=== PATIENT | female | born 1960 | race Caucasian/White ===

== ENCOUNTER 2017-07-23 14:36 | Inpatient (IN) | payer MEDICAID ==
[~2017-07-23] VITALS: Ht 170.2 cm; Wt 66.3 kg
[2017-07-23 14:48] VITALS: Ht 170.2 cm; Wt 66.3 kg
[2017-07-23] MEDS ORDERED: ASPIRIN 325 MG TAB PO STA (15:15)
[2017-07-23] MEDS ORDERED: ASPI-664 PO (15:24)
[2017-07-23] MEDS ORDERED: ATOR40TA68 PO (15:24)
[2017-07-23] MEDS ORDERED: CARV3.1260 PO (15:24)
[2017-07-23 15:30] VITALS: TEMP 97.9
--- NOTE | 2017-07-23 15:30 | ERA ---
ER Documentation Chief Complaint Date/Time DATE: 07/23/17 TIME: 15:17 Chief Complaint BIB RA FOR EVAL OF GENERALIZED WEAKNESS. PT ON HD. SCHEDULED TODAY. HPI This is a 55-year-old female with a past medical history of diabetes, end-stage renal disease on dialysis Friday, Friday and Friday who is presenting with weakness, recurrent progressive left-sided chest pain radiating to the back for several days. The patient was reportedly admitted at [facility] and treated for heart failure. She is discharged yesterday with a prescription for nitroglycerin. However, she has not yet been able to fill this prescription. She is with her psychiatric social worker supervisor this afternoon when she described persistent chest pain. The psychiatric social worker supervisor was concerned at that time, and called an ambulance. The patient tried to refuse the ambulance, and she presently does not want to be here. The patient denies diaphoresis. She has had no lightheadedness or dizziness. She does not feel like she is going to pass out. She denies nausea or vomiting or abdominal pain. The patient's fatigue has been going on for weeks, but it been worse over the last week or so, which is what initially prompted her to be evaluated at [facility]. The patient's chest pain has also been going on for the same amount of time and has been evaluated for this previously. She reports that the CP has persisted through discharge, but that it seems to be decreasing today. ROS All systems reviewed and are negative except as per history of present illness. Medications Home Meds Reported Medications Carvedilol* (Carvedilol*) 3.125 Mg Tablet, 3.125 MG PO BID, #60 TAB 07/23/17 Atorvastatin* (Atorvastatin*) 40 Mg Tablet, 40 MG PO QHS, #30 TAB 07/23/17 Aspirin (Low Dose Aspirin) 81 Mg Tablet.dr, 81 MG PO DAILY, #30 TAB 07/23/17 Allergies Allergies: Coded Allergies: No Known Allergy (Unverified , 07/23/17) PMhx/Soc History of Surgery: Yes (AV SHUNT PLACEMENT ) Anesthesia Reaction: No Hx Miscellaneous Medical Probl: Yes (KIDNEY DISEASE ) Hx Alcohol Use: No Hx Substance Use: No Hx Tobacco Use: No Smoking Status: Never smoker FmHx Family History: diabetes Physical Exam Vitals Vital Signs Date Time Temp Pulse Resp B/P Pulse Ox O2 Delivery O2 Flow Rate FiO2 07/23/17 18:30 59 20 120/71 100 Room Air 07/23/17 15:30 97.9 50 16 117/66 100 Room Air 07/23/17 14:48 97.9 89 16 115/59 100 Physical Exam Const: Well nourished, well developed Head: Atraumatic Eyes: Normal Conjunctiva ENT: Normal External Ears, Nose and Mouth. Neck: Full range of motion..~ No meningismus. Resp: Clear to auscultation bilaterally Cardio: Regular rate and rhythm, no murmurs Abd: Soft, non tender, non distended. Normal bowel sounds Skin: No petechiae or rashes Back: No midline or flank tenderness Ext: No cyanosis, or edema, palpable thrill to RUE AV fistula Neur: Awake and alert Psych: Normal Mood and Affect Result Diagram: 07/23/17 1550 07/23/17 1550 Results 24 hrs Laboratory Tests Test 07/23/17 15:50 White Blood Count 5.510^3/ul Red Blood Count 3.6910^6/ul Hemoglobin 12.2g/dl Hematocrit 36.1% Mean Corpuscular Volume 97.8fl Mean Corpuscular Hemoglobin 33.1pg Mean Corpuscular Hemoglobin Concent 33.8g/dl Red Cell Distribution Width 12.3% Platelet Count 24524^3/UL Mean Platelet Volume 10.5fl Neutrophils % 56.1% Lymphocytes % 31.8% Monocytes % 8.6% Eosinophils % 2.4% Basophils % 0.9% Nucleated Red Blood Cells % 0.0/100WBC Neutrophils # (Manual) 3.110^3/ul Lymphocytes # 1.710^3/ul Monocytes # 0.510^3/ul Eosinophils # 0.110^3/ul Basophils # 0.110^3/ul Nucleated Red Blood Cells # 0.010^3/ul Sodium Level 148mmol/L Potassium Level 5.2mmol/L Chloride Level 98mmol/L Carbon Dioxide Level 27mmol/L Anion Gap 28 Blood Urea Nitrogen 57mg/dl Creatinine 9.15mg/dl Glucose Level 76mg/dl Calcium Level 9.4mg/dl Troponin I 0.036ng/ml Current Medications Medications (Trade) Dose Ordered Sig/Brissa Route PRN Reason Start Time Stop Time Status Last Admin Dose Admin Aspirin (Aspirin) 325 mg ONCE STAT PO 07/23/17 15:15 07/23/17 15:17 DC 07/23/17 16:15 Ondansetron HCl (Zofran Inj) 4 mg ER BRIDGE PRN IV NAUSEA AND/OR VOMITING 07/23/17 18:00 07/24/17 17:59 Acetaminophen 650 mg 650 mg ER BRIDGE PRN PO MILD PAIN/FEVER 07/23/17 18:00 07/24/17 17:59 Sodium Chloride (NS) 1,000 ml @ 50 mls/hr Q20H IV 07/23/17 19:52 IV Flush (NS 3 ml) 3 ml PER PROTOCOL IV 07/23/17 20:00 Ondansetron HCl (Zofran Inj) 4 mg Q6H PRN IV NAUSEA AND/OR VOMITING 07/23/17 20:00 Acetaminophen (Tylenol Tab) 650 mg Q6H PRN PO PAIN LEVEL 1-3 OR FEVER 07/23/17 20:00 Acetaminophen/ Hydrocodone Bitart ([place] (5/325)) 1 tab Q6H PRN PO MODERATE PAIN LEVEL 4-6 07/23/17 20:00 Morphine Sulfate (morphine) 2 mg Q4H PRN IV SEVERE PAIN LEVEL 7-10 07/23/17 20:00 Docusate Sodium (Colace) 100 mg Q12H PRN PO CONSTIPATION 07/23/17 20:00 Famotidine (Pepcid Iv) 20 mg HS IV 07/23/17 21:00 Procedures/MDM The patient's presenting with persistent weakness and chest pain. She is been evaluated for this chest pain multiple times including a recent admission to [facility] for which she was discharged yesterday. The only reason why she went to her case sealer was to work on getting a prescription for nitroglycerin filled. Her case sealer was concerned and called the paramedics. The patient does not want to be here but is willing to stay for a workup as she does still have chest pain. I intend to perform a cardiac workup. The patient's blood work was obtained and reviewed. The patient's CBC was unremarkable. The patient's BMP shows showed a mild elevation in K and Na. Of greater note was the elevated BUN and Cr, likely from her missed dialysis today. The troponin is elevated at 0.036, which is difficult to evaluate as this is very likely elevated 2/2 her renal pathology but she presents with CP. The patient's chest x-ray was read by radiology as follows: FINDINGS: The heart is normal in size. The pulmonary vessels are normal in caliber. The lungs are clear. The costophrenic angles are sharp. The visualized bony thorax is unremarkable. IMPRESSION: No acute cardiopulmonary disease. .Logan Smith MD, Date Time Electronically viewed and signed by .Logan Smith MD, on 07/23/2017 15:55 EKG read by me: Rate/Rhythm: Regular rate and rhythm at a rate of 81 Intervals: Normal QRS and [place], mildly prolonged QTc [place]: Normal Ischemic Profile: Nonspecific Twave changes, no ROLANDO, no STD Impression: No evidence of acute ischemia or arrhythmia I put the patient's heart score at 5 for age, risk factors, moderate suspicion, nonspecific repolarization abnormalities and elevated trop. This is been an ongoing issue and she has had a full workup previously at [facility]. That said, given her moderate risk, I will admit this patient for observational status and serial EKGs and troponins. The risks and benefits were discussed with the patient including her increased risk of heart attack in the next 30 days. The patient expressed understanding and she accepted admission. Records from [facility] may be prudent to evaluate duration since previous stress test. Patient was not sure. She may require consult with nephrology in the hospital for dialysis. The patient was admitted by Dr. Osuna from the [facility], directed by the patient's insurance. Departure Diagnosis: Primary Impression: Chest pain Qualified Code: R07.9 - Chest pain, unspecified type Additional Impression: Fatigue Qualified Code: R53.83 - Fatigue, unspecified type Condition: GUY Ramírez MD Jul 23, 2017 15:29
--- NOTE | 2017-07-23 15:55 | RADRPT ---
PROCEDURE: Chest x-ray CLINICAL INDICATION: Chest pain TECHNIQUE: Chest single view COMPARISON: None FINDINGS: The heart is normal in size. The pulmonary vessels are normal in caliber. The lungs are clear. Th e costophrenic angles are sharp. The visualized bony thorax is unremarkable. IMPRESSION: No acute cardiopulmonary disease. RPTAT: HH .Logan Smith MD, Date Time Electronically viewed and signed by .Logan Smith MD, MD on 07/23/2017 15:55 .W/
[2017-07-23 16:11] LABS: BASOPHIL # 0.1 10^3/ul (0.0-0.1); BASOPHILS % 0.9 % (0.0-2.0); EOSINOPHILS # 0.1 10^3/ul (0.0-0.5); EOSINOPHILS % 2.4 % (0.0-7.0); HEMATOCRIT 36.1 % (37.0-47.0); HEMOGLOBIN 12.2 g/dl (12.0-16.0); LYMPHOCYTES # 1.7 10^3/ul (0.8-2.9); LYMPHOCYTES % 31.8 % (15.0-51.0); MEAN CORPUSCULAR HEMOGLOBIN 33.1 pg (29.0-33.0); MEAN CORPUSCULAR HGB CONC 33.8 g/dl (32.0-37.0); MEAN CORPUSCULAR VOLUME 97.8 fl (82.0-101.0); MEAN PLATELET VOLUME 10.5 fl (7.4-10.4); MONOCYTE # 0.5 10^3/ul (0.3-0.9); MONOCYTES % 8.6 % (0.0-11.0); NEUTROPHILS % 56.1 % (39.0-77.0); PLATELET COUNT 221 10^3/UL (140-415); RED BLOOD COUNT 3.69 10^6/ul (4.20-5.40); RED CELL DISTRIBUTION WIDTH 12.3 % (11.5-14.5); WHITE BLOOD COUNT 5.5 10^3/ul (4.8-10.8)
[2017-07-23 16:26] LABS: CALCIUM 9.4 mg/dl (8.4-10.2); CREATININE 9.15 mg/dl (0.44-1.00); POTASSIUM 5.2 mmol/L (3.5-5.1)
[2017-07-23 16:37] LABS: TROPONIN-I 0.036 ng/ml (0.00-0.12)
[2017-07-23] MEDS ORDERED: ACETAMINOPHEN 325 MG TAB PO PRN ×2 (18:00→20:00)
[2017-07-23] MEDS ORDERED: ONDANSETRON 4 MG INJ IV PRN ×2 (18:00→20:00)
[2017-07-23] MEDS ORDERED: morphine 2 MG INJ IV PRN (20:00)
[2017-07-23] MEDS ORDERED: NACL 0.9% 3 ML SYG IV SCH (20:00)
[2017-07-23] MEDS ORDERED: DOCUSATE SODIUM 100 MG CAP PO PRN (20:00)
[2017-07-23] MEDS: ASPIRIN (EC) 81 MG TAB PO SCH (21:00)
[2017-07-23] MEDS ORDERED: hydrALAzine 20 MG INJ IV PRN (21:00)
[2017-07-23 21:25] VITALS: PULSE 76
[2017-07-23 22:00] VITALS: BP 137/64; RESP 20
[2017-07-23] MEDS: ATORVASTATIN 40 MG TAB PO SCH (22:24)
[2017-07-23] MEDS: FAMOTIDINE 20 MG INJ IV SCH (22:26)
[2017-07-23 23:42] VITALS: BP 129/67; RESP 20
[2017-07-24] VITALS (12 sets, daily range): BP systolic 122–139; BP diastolic 56–74; PULSE 68–79; RESP 18–20
--- NOTE | 2017-07-24 01:54 | HP ---
DATE OF ADMISSION: 07/23/2017 DATE OF : 1960 PRIMARY CARE PHYSICIAN: Unknown. ROCK DUSTER: Leon Bee DO CHIEF COMPLAINT: Chest pain. HISTORY OF PRESENT ILLNESS: This is a 56-year-old female who presents with 4 days of chest pain and shortness of breath. No known aggravating and no known alleviating factors. Insidious onset of substernal left chest, possibly to the back, 4 days, fairly constant, without any known aggravating or relieving factors. Denies any elle productive cough, fever, travel, leg pain, leg edema. Adherent to dialysis. Treatment prior to arrival unknown. Does not sound like any pleurisy. Possible increase with activity. No nausea, no vomiting, no diaphoresis. No alcohol use. Apparently in [facility] yesterday, given prescription for nitroglycerin, but did not fill the prescription. Positive fatigue. PAST MEDICAL HISTORY: 1. End-stage renal disease, sees Dr. Nish Bradley. 2. Dyslipidemia. 3. Hypertension. 4. Pneumonia. PAST SURGICAL HISTORY: AV shunt. ALLERGIES: NO KNOWN DRUG ALLERGIES. HOME MEDICATIONS: Coreg, Lipitor, aspirin. SOCIAL HISTORY: No tobacco or alcohol. FAMILY HISTORY: There is no family history of early coronary artery disease, cancer or stroke of which I am aware. REVIEW OF SYSTEMS: CONSTITUTIONAL: Possible anxiety. The patient saw her social media analyst today. No agitation. NEUROLOGIC: No headache. No loss of speech or vision. Positive headache, dizziness. CARDIOVASCULAR: Chest pain and dyspnea. No edema. RESPIRATORY: Positive cough, dyspnea. No edema. GASTROINTESTINAL: No pain, nausea, vomiting or diarrhea. GENITOURINARY: No hematuria, or fever. MUSCULOSKELETAL: No gait dysfunction, no itching, no edema. ENDOCRINE: Positive dyslipidemia. No thyroid dysfunction. No diabetes. HEMATOLOGIC: No hemoptysis, melena or hematuria. PHYSICAL EXAMINATION: HEENT: Extraocular movements are intact. No pallor. NECK: No adenopathy. No carotid bruit. No JVD noted. CARDIOVASCULAR: S1 and S2 regular. No murmur, rub or gallop appreciated. LUNGS: Diminished breath sounds bilaterally. ABDOMEN: Bowel sounds present. Nontender and nondistended. No rigidity, rebound or guarding. EXTREMITIES: Without any edema. Negative Homans sign. DATA: Chest X-Ray: No acute process. White cell count 5, hemoglobin 12, hematocrit 36, platelets of 221. INR pending. Sodium 148, potassium 5.2, chloride 98,bicarbonate 26, BUN of 57, creatinine 9, glucose of 70. Troponin negative at 0.0. ASSESSMENT: 1. Chest pain. Atypical. Rule out acute coronary syndrome. Possible anxiety. 2. End-stage renal disease. 3. Dyslipidemia. 4. Hypertension. PLAN: Admit to Telemetry. Consult Nephrology. Rule out acute coronary syndrome via enzymes, EKG, symptoms. Potentially, if needed, stress test. Dictated By: Faheem Fink MD /[email or web address]/sandra /Document#: [id number] CC: Leon Bee DO;*EndCC*
[2017-07-24] MEDS: SOD CHLORIDE 0.9% 1,000 ML IV SCH ×2 (05:23→15:52)
[2017-07-24] MEDS: ASPIRIN (EC) 81 MG TAB PO SCH (10:16)
[2017-07-24 13:37] LABS: BASOPHIL # 0.1 10^3/ul (0.0-0.1); BASOPHILS % 1.5 % (0.0-2.0); EOSINOPHILS # 0.2 10^3/ul (0.0-0.5); EOSINOPHILS % 4.3 % (0.0-7.0); HEMATOCRIT 32.7 % (37.0-47.0); HEMOGLOBIN 10.8 g/dl (12.0-16.0); LYMPHOCYTES # 1.4 10^3/ul (0.8-2.9); LYMPHOCYTES % 36.1 % (15.0-51.0); MEAN CORPUSCULAR HEMOGLOBIN 32.2 pg (29.0-33.0); MEAN CORPUSCULAR VOLUME 97.6 fl (82.0-101.0); MEAN PLATELET VOLUME 10.4 fl (7.4-10.4); MONOCYTE # 0.3 10^3/ul (0.3-0.9); MONOCYTES % 7.8 % (0.0-11.0); PLATELET COUNT 188 10^3/UL (140-415); RED BLOOD COUNT 3.35 10^6/ul (4.20-5.40); RED CELL DISTRIBUTION WIDTH 12.3 % (11.5-14.5)
[2017-07-24 13:53] LABS: ALBUMIN/GLOBULIN RATIO 1.11; CALCIUM 9.2 mg/dl (8.4-10.2); CREATININE 10.05 mg/dl (0.44-1.00); MAGNESIUM 2.2 mg/dl (1.7-2.5); PHOSPHORUS 6.7 mg/dl (2.5-4.9); POTASSIUM 5.3 mmol/L (3.5-5.1); TOTAL PROTEIN 7.6 g/dl (6.1-8.1)
[2017-07-24 13:56] LABS: INR 1.03; PROTIME 13.5 Sec (12.2-14.2); PT RATIO 1.1
[2017-07-24 14:23] LABS: THYROID STIMULATING HORMONE 0.719 MIU/L (0.465-4.680)
[2017-07-24 14:58] LABS: TROPONIN-I 0.046 ng/ml (0.00-0.12)
--- NOTE | 2017-07-24 17:33 | PN ---
Date/Time of Note Date/Time of Note DATE: 07/24/17 TIME: 17:32 Assessment/Plan VTE Prophylaxis VTE Prophylaxis Intervention: LMWH Lines/Catheters IV [facility] Type [facility] Peripheral IV Urinary Cath still in place: No Assessment/Plan Chief Complaint/Hosp Course Objective: No events Objective: Vital signs stable No pallor JVD Regular Clear nontender Benign no bruits No edema Assessment and plan 1. Chest pain. Atypical. Rule out acute coronary syndrome. Possible anxiety. stress test 2. End-stage renal disease. Dialysis. 3. Dyslipidemia. 4. Hypertension. Problems: Exam/Review of Systems Vital Signs Vitals Vital Signs Date Time Temp Pulse Resp B/P Pulse Ox O2 Delivery O2 Flow Rate FiO2 07/24/17 16:19 98.4 70 19 125/64 95 07/23/17 20:25 Room Air Results Result Diagram: 07/24/17 1310 07/24/17 1310 Results 24 hrs Laboratory Tests Test 07/24/17 13:10 White Blood Count 4.0 #L Red Blood Count 3.35 L Hemoglobin 10.8 L Hematocrit 32.7 L Mean Corpuscular Volume 97.6 Mean Corpuscular Hemoglobin 32.2 Mean Corpuscular Hemoglobin Concent 33.0 Red Cell Distribution Width 12.3 Platelet Count 188 Mean Platelet Volume 10.4 Neutrophils % 50.0 Lymphocytes % 36.1 Monocytes % 7.8 Eosinophils % 4.3 Basophils % 1.5 Nucleated Red Blood Cells % 0.0 Neutrophils # (Manual) 2.0 Lymphocytes # 1.4 Monocytes # 0.3 Eosinophils # 0.2 Basophils # 0.1 Nucleated Red Blood Cells # 0.0 Prothrombin Time 13.5 Prothrombin Time Ratio 1.1 INR International Normalized Ratio 1.03 Sodium Level 143 Potassium Level 5.3 H Chloride Level 100 Carbon Dioxide Level 23 Anion Gap 25 H Blood Urea Nitrogen 61 H Creatinine 10.05 H Glucose Level 73 Hemoglobin A1c 4.9 Calcium Level 9.2 Phosphorus Level 6.7 H Magnesium Level 2.2 Total Bilirubin 0.0 L Direct Bilirubin 0.00 Indirect Bilirubin 0.0 Aspartate Amino Transf (AST/SGOT) 22 Alanine Aminotransferase (ALT/SGPT) 26 Alkaline Phosphatase 76 Troponin I 0.046 Total Protein 7.6 Albumin 4.0 Globulin 3.60 H Albumin/Globulin Ratio 1.11 Lipase 250 Thyroid Stimulating Hormone (TSH) 0.719 Medications Medications Current Medications Sodium Chloride (NS) 1,000 ml @ 50 mls/hr Q20H IV Last administered on 05:23; Admin Dose 50 MLS/HR; Start 07/23/17 at 19:52 Ondansetron HCl (Zofran Inj) 4 mg Q6H PRN IV NAUSEA AND/OR VOMITING; Start at 20:00 Acetaminophen (Tylenol Tab) 650 mg Q6H PRN PO PAIN LEVEL 1-3 OR FEVER; Start at 20:00 Acetaminophen/ Hydrocodone Bitart ([place] (5/325)) 1 tab Q6H PRN PO MODERATE PAIN LEVEL 4-6; Start 07/23/17 at 20:00 Morphine Sulfate (morphine) 2 mg Q4H PRN IV SEVERE PAIN LEVEL 7-10; Start 07/23 at 20:00 Docusate Sodium (Colace) 100 mg Q12H PRN PO CONSTIPATION; Start 07/23/17 at 20: 00 Famotidine (Pepcid Iv) 20 mg HS IV Last administered on 07/23/17 22:26; Admin Dose 20 MG; Start 07/23/17 at 21:00 Aspirin (Halfprin) 81 mg DAILY PO Last administered on 07/24/17 10:16; Admin Dose 81 MG; Start 07/23/17 at 21:00 Atorvastatin Calcium (Lipitor) 40 mg QHS PO Last administered on 07/23/17 22: 24; Admin Dose 40 MG; Start 07/23/17 at 21:00 Carvedilol (Coreg) 3.125 mg BID PO Last administered on 07/24/17 10:20; Admin Dose 3.125 MG; Start 07/23/17 at 21:00 Hydralazine HCl (Apresoline) 5 mg Q4 PRN IV ELEVATED SYSTOLIC BP; Start at 21:00 GARLAND PUGH MD Jul 24, 2017 17:33
[2017-07-24] MEDS: ATORVASTATIN 40 MG TAB PO SCH (21:59)
[2017-07-24] MEDS: FAMOTIDINE 20 MG INJ IV SCH (22:08)
[2017-07-24] MEDS ORDERED: ALPRAZOLAM 1 MG TAB PO PRN (22:30)
[2017-07-24] MEDS: HYDROCODONE/APAP (5/325) TAB PO PRN (22:38)
--- NOTE | 2017-07-24 23:30 | CONS ---
DATE OF ADMISSION: 07/23/2017 DATE OF CONSULTATION: 07/24/2017 REASON FOR CONSULTATION: End-stage renal disease. REFERRING PHYSICIAN: Faheem Fink MD HISTORY OF PRESENT ILLNESS: This is a 56-year-old female with a past medical history of end-stage renal disease, on dialysis Friday, Friday, Friday. Primary flatbed stitcher is . The patient also has history of dyslipidemia, hypertension, pneumonia, presents to [facility] for chest pain. Patient was subsequently admitted for evaluation. Upon my evaluation, patient at this time is currently stable. Denies any fevers, chills, nausea, vomiting. PAST MEDICAL HISTORY: History of end-stage renal disease, history of dyslipidemia, hypertension. PAST SURGICAL HISTORY: Past section. ALLERGIES: NO KNOWN DRUG ALLERGIES. MEDICATION: Patient's home medications reviewed. SOCIAL HISTORY: Does not drink or smoke. FAMILY HISTORY: Noncontributory. REVIEW OF SYSTEMS: A 14-point review of systems was conducted. Pertinent positives stated in HPI, otherwise negative. PHYSICAL EXAMINATION: VITAL SIGNS: Blood pressure 130/76, respirations 22, pulse 82, temperature 98.6. HEENT: Head is normocephalic. NECK: Supple. HEART: Regular rate. LUNGS: Show diminished breath sounds at the base. ABDOMEN: Soft, nontender to palpation. No rebound or guarding. EXTREMITIES: Negative for clubbing, cyanosis, no edema. DERMATOLOGIC: Clean. No rashes. MUSCULOSKELETAL: No joint effusion. NEUROLOGIC: No focal deficits. LABORATORY: Show sodium 143, potassium 5.3, chloride 100, BUN 61, creatinine 7.05. White count 4.0, hemoglobin 10.9, hematocrit 32.7, platelet count is 180. A chest x-ray showed no acute findings. IMPRESSION AND PLAN: This is a 56-year-old female, presents with: 1. End-stage renal disease. Plan: The patient is on dialysis Friday, Friday, Friday. 2. Access arteriovenous fistula. Plan for dialysis tomorrow on 3 hours, 3K bath, calcium 2.5, ultrafiltration as tolerated. 3. Hypokalemia. Will dialyze on 2 potassium bath. 4. Anemia. Monitor H and H levels. Will give Epogen with hemodialysis. 5. Mineral bone disorder. Will monitor calcium and phosphorus levels. 6. Hypertension. Continue current blood pressure regimen. 7. Chest pain. Rule out acute coronary syndrome. Continue medical management. Thank you, Dr. Fink for this interesting consult. It will be a pleasure to follow patient with you throughout the hospital course. Dictated By: Leon Bee DO /[email or web address]/elia /Document#: [id number]
[2017-07-25] VITALS (18 sets, daily range): BP systolic 113–141; BP diastolic 57–78; PULSE 62–84; RESP 18–20
[2017-07-25 08:28] LABS: BASOPHIL # 0.1 10^3/ul (0.0-0.1); BASOPHILS % 1.1 % (0.0-2.0); EOSINOPHILS # 0.2 10^3/ul (0.0-0.5); HEMATOCRIT 33.2 % (37.0-47.0); LYMPHOCYTES # 1.6 10^3/ul (0.8-2.9); MEAN CORPUSCULAR HEMOGLOBIN 32.1 pg (29.0-33.0); MEAN CORPUSCULAR HGB CONC 33.1 g/dl (32.0-37.0); MEAN CORPUSCULAR VOLUME 96.8 fl (82.0-101.0); MEAN PLATELET VOLUME 10.5 fl (7.4-10.4); MONOCYTE # 0.3 10^3/ul (0.3-0.9); MONOCYTES % 7.4 % (0.0-11.0); NEUTROPHILS % 50.3 % (39.0-77.0); PLATELET COUNT 190 10^3/UL (140-415); RED BLOOD COUNT 3.43 10^6/ul (4.20-5.40); RED CELL DISTRIBUTION WIDTH 12.2 % (11.5-14.5); WHITE BLOOD COUNT 4.4 10^3/ul (4.8-10.8)
[2017-07-25 08:42] LABS: INR 1.09; PROTIME 14.1 Sec (12.2-14.2); PT RATIO 1.1
[2017-07-25 08:55] LABS: ALBUMIN 3.9 g/dl (3.3-4.9); ALBUMIN/GLOBULIN RATIO 1.18; CREATININE 10.89 mg/dl (0.44-1.00); MAGNESIUM 2.2 mg/dl (1.7-2.5); PHOSPHORUS 7.5 mg/dl (2.5-4.9); POTASSIUM 5.1 mmol/L (3.5-5.1); TOTAL PROTEIN 7.2 g/dl (6.1-8.1)
[2017-07-25] MEDS: ASPIRIN (EC) 81 MG TAB PO SCH (09:00)
--- NOTE | 2017-07-25 11:30 | PN ---
DATE: 07/25/2017 SUBJECTIVE DATA: Patient is stable. No events overnight. No fevers, chills, nausea, vomiting. No shortness of breath. OBJECTIVE DATA: VITAL SIGNS: Blood pressure 120/66, respirations 20, pulse 64, temperature 98.2. HEENT: Head is normocephalic. NECK: Supple. HEART: Regular rate. LUNGS: Diminished breath sounds at the base. ABDOMEN: Soft, nontender to palpation. No rebound or guarding. EXTREMITIES: Negative for clubbing, cyanosis. No edema. DERMATOLOGIC: No rashes. MUSCULOSKELETAL: No joint effusion. NEUROLOGIC: No change in exam. MEDICATIONS: Reviewed. LABORATORY AND DIAGNOSTIC DATA: Sodium 141, BUN 88, creatinine 10.89. White count 4.4, hemoglobin 9.0, hematocrit 33.2, platelet count is 190,000. ASSESSMENT AND PLAN: 1. End-stage renal disease. Plan for hemodialysis today. Will dialyze 3 hours, 3K bath, calcium 2.5, ultrafiltration as tolerated. 2. Hypokalemia improved. Continue dialysis on a low potassium bath. 3. Anemia. Monitor hemoglobin and hematocrit levels. Will give Epogen with hemodialysis. 4. Mineral bone disorder. Monitor calcium and phosphorus levels. 5. Hypertension. Continue current blood pressure regimen. 6. Chest pain. The patient's symptoms are improving. Continue to rule out acute coronary syndrome. Continue medical management. Dictated By: Leon Bee DO /[email or web address]/rosina /Document#: [id number]
[2017-07-25] MEDS ORDERED: REGADENOSON 0.4 MG/5 ML SYG ONE (11:47)
[2017-07-25] MEDS ORDERED: NITROGLYCERIN (SL) 0.4 MG TAB SL PRN (12:30)
--- NOTE | 2017-07-25 13:43 | CONS ---
DATE OF ADMISSION: 07/23/2017 DATE OF CONSULTATION: 07/25/2017 REASON FOR CONSULTATION: Chest pain, assess for acute coronary syndrome. REFERRING PHYSICIAN: Dr. Fink from the hospitalist service. HISTORY OF PRESENT ILLNESS: Ms. Orlando is a 56-year-old female with history of end-stage renal disease, on hemodialysis, hypertension, anemia, who initially presented with complaints of substernal chest pain, and additionally, has associated shortness of breath. The patient's chest pain is not necessarily related to exertional activities. The patient subsequently admitted to the hospital and since admitted to the hospital has had stable vital signs. Systolic blood pressures from 110s to 130s/ 50s to 70s. The patient's labs are notable for negative troponin x2 greater than 8 hours apart. TSH of 0.719. No lipid panel has been sent. The patient's electrocardiogram revealed sinus rhythm at a rate of 74, normal axis, normal intervals, with inferior biphasic T-wave abnormalities. Patient at this time has had improvement in chest pain. The patient has been placed on beta elvin, aspirin, given Xanax for possible anxiety. PAST MEDICAL HISTORY: As above in HPI. MEDICATION: Currently in the hospital: 1. Xanax p.r.n. 2. Pepcid 20 mg IV at bedtime. 3. Aspirin 81 mg daily. 4. Lipitor 40 mg at bedtime. 5. Carvedilol 3.125 mg p.o. b.i.d. 6. Zofran p.r.n. 7. Tylenol p.r.n. 8. [place] p.r.n. 9. Morphine p.r.n. 10. Colace p.r.n. ALLERGIES: NO KNOWN DRUG ALLERGIES. SOCIAL HISTORY: No tobacco, EtOH or illicit drug use. FAMILY HISTORY: No history of sudden cardiac or early CAD. REVIEW OF SYSTEMS: As above in HPI. CONSTITUTIONAL: No fevers or chills. RESPIRATORY: Intermittent shortness of breath. CARDIOVASCULAR: Intermittent chest pain. GASTROINTESTINAL: No vomiting. GENITOURINARY: End-stage renal disease. PSYCHIATRIC: Possible anxiety. NEUROLOGIC: No documented CVA. PHYSICAL EXAMINATION: VITAL SIGNS: Temperature 98.2, blood pressure 127/66, pulse 64, respiratory rate 20, satting 98 percent. GENERAL: The patient is alert, awake, complaining of intermittent chest pain. NECK: JVP approximately 8-9 cm of water. LUNGS: Fair air movement throughout. HEART: Regular rate and rhythm. Normal S1, S2. 1/6 systolic murmur. Nondisplaced PMI. ABDOMEN: Positive bowel sounds. Soft. EXTREMITIES: No edema. 1+ pulses bilateral posterior tibial. LABORATORY: Most recently from today: Sodium 141, potassium 5.1, creatinine 10.89, BUN of 80. White blood cell count 4.4, hemoglobin 11.0, platelet count of 190. IMAGING STUDIES: As above in HPI. No further imaging studies were reviewed at this time. ELECTROCARDIOGRAM: As above in HPI. No further electrocardiograms were reviewed at this time. IMPRESSION: 1. Chest pain. Assess for acute coronary syndrome, with negative troponins x2 at this time. 2. Abnormal electrocardiogram with inferior biphasic T-wave abnormalities. 3. Hypertension, under reasonable control. 4. Dyslipidemia. 5. Possible anxiety. 6. End-stage renal disease, on hemodialysis. RECOMMENDATIONS: 1. At this time, would maintain patient on telemetry monitoring to follow rhythm and rate closely and to continue patient's current carvedilol for control of blood pressures. 2. Continue patient's aspirin for prophylaxis of cardiac events. 3. Continue patient's statin and adjust it according to a fasting lipid panel to be checked. We will also give patient sublingual nitroglycerin for recurrent episodes of chest pain. 4. Patient to undergo Lexiscan cardiac stress test today in order to assess for the possibility of ischemia in light of his symptoms of chest pain, abnormal electrocardiogram findings and admit to the hospital. 5. Dyspnea. 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 Thank you for allowing me to part in the care of this patient. I will continue to follow him very closely with you. Further recommendation made as patient progresses through his inpatient hospital course and after the above study, Lexiscan stress test, is complete. Dictated By: Deandre Boyle MD /[email or web address]/[email or web address] /Document#: [id number] ; Dr. Fink, hospitalist service
--- NOTE | 2017-07-25 13:54 | CARRPT ---
DATE OF PROCEDURE: 07/25/2017 INDICATION: Chest pain. Assess for acute coronary syndrome. TYPE OF PROCEDURE: Lexiscan Cardiolite stress test, electrocardiogram portion. Baseline vital signs: Pulse 74, blood pressure 134/76. Electrocardiogram: Normal sinus rhythm, rate of 74, normal axis, normal intervals with isolated T-wave flattening in aVL and I and inferior biphasic T-wave abnormalities. PROCEDURE: Patient underwent standard Lexiscan infusion for 10 seconds followed by uptake of radiotracer. Patient's test was stopped due to completion of protocol. Maximal achieved blood pressure during the test 137/65. Maximum heart rate during the test 88. ELECTROCARDIOGRAM FINDINGS: During Lexiscan infusion, patient did not develop any new Lexiscan-induced ST-T wave changes from baseline abnormalities. SYMPTOMS: The patient had no complaints of chest pain, shortness of breath. IMPRESSION: 1. No Lexiscan-induced ST-T wave changes from baseline abnormalities diagnostic for cardiac ischemia. 2. No complaints of chest pain or shortness of breath during stress test. 3. No documented premature ventricular contractions during stress test. 4. Reported nuclear images to follow in a separate dictation. Dictated By: Deandre Boyle MD /[email or web address]/[email or web address] /Document#: [id number] ; Dr. Fink, hospitalist service
[2017-07-25] MEDS ORDERED: IBUP400T22 PO (16:51)
--- NOTE | 2017-07-25 16:51 | PDOCDIS ---
Discharge Instructions DIAGNOSIS Discharge Diagnosis chest pain CONDITION Patient Condition: Stable HOME CARE INSTRUCTIONS: Special Diet: RENAL DIET. ACTIVITY: Activity Restrictions: Slowly Increase Activity Avoid heavy lifting FOLLOW UP/APPOINTMENTS Follow-up Plan PCP 1wk Dialysis as before. - may take motrin for chest/ upper back pain. consider ice pack/ heat/ massage therapy GARLAND PUGH MD Jul 25, 2017 16:51
[2017-07-25] MEDS ORDERED: IBUPROFEN 400 MG TAB PO PRN (17:00)
--- NOTE | 2017-07-25 17:05 | DS ---
Date/Time of Note Date/Time of Note DATE: 07/25/17 TIME: 16:52 Discharge Summary Admission/Discharge Info Admit Date/Time Jul 23, 2017 at 17:53 Discharge Date/Time Discharge Diagnosis chest pain Patient Condition: Stable Procedures Stress Test- Hx of Present Illness This is a 56-year-old female who presents with 4 days of chest pain and shortness of breath. No known aggravating and no known alleviating factors. Insidious onset of substernal left chest, possibly to the back, 4 days, fairly constant, without any known aggravating or relieving factors. Denies any elle productive cough, fever, travel, leg pain, leg edema. Adherent to dialysis. Treatment prior to arrival unknown. Does not sound like any pleurisy. Possible increase with activity. No nausea, no vomiting, no diaphoresis. No alcohol use. Apparently in [place] [facility] yesterday, given prescription for nitroglycerin, but did not fill the prescription. Positive fatigue. Hospital Course Evaluated and managed for chest pain. Ruled out for acute coronary syndrome by enzymes EKG symptoms. Chest x-ray negative for any acute process. She has left -sided chest back discomfort which is nonexertional. Probably musculoskeletal. Stable and fit for discharge. I asked her to try local therapy or short-term Motrin. I did reinforce that this issue may last for a few weeks. -Patient continue dialysis -Patient underwent cardiac stress test. If this is negative she can go home A/P 1. Chest pain. Atypical. stress test- if negative may go home. 2. End-stage renal disease. Dialysis to continue. 3. Dyslipidemia. 4. Hypertension. Home Meds Active Scripts Ibuprofen* (Ibuprofen*) 400 Mg Tablet, 400 MG PO Q6H Y for PAIN OR TEMP ABOVE 38C for 5 Days, #15 TAB OTC Prov:GARLAND PUGH MD 07/25/17 Reported Medications Carvedilol* (Carvedilol*) 3.125 Mg Tablet, 3.125 MG PO BID, #60 TAB 07/23/17 Atorvastatin* (Atorvastatin*) 40 Mg Tablet, 40 MG PO QHS, #30 TAB 07/23/17 Aspirin (Low Dose Aspirin) 81 Mg Tablet.dr 81 MG PO DAILY, #30 TAB 07/23/17 Follow-up Plan PCP 1wk Continue HD Primary Care Provider Care Physician No Primary Time spent on discharge: < 30 minutes Pending Labs Laboratory Tests Test 07/25/17 07:10 White Blood Count 4.410^3/ul (4.8-10.8) Red Blood Count 3.4310^6/ul (4.20-5.40) Hemoglobin 11.0g/dl (12.0-16.0) Hematocrit 33.2% (37.0-47.0) Mean Corpuscular Volume 96.8fl (82.0-101.0) Mean Corpuscular Hemoglobin 32.1pg (29.0-33.0) Mean Corpuscular Hemoglobin Concent 33.1g/dl (32.0-37.0) Red Cell Distribution Width 12.2% (11.5-14.5) Platelet Count 85132^3/UL (140-415) Mean Platelet Volume 10.5fl (7.4-10.4) Neutrophils % 50.3% (39.0-77.0) Lymphocytes % 36.0% (15.0-51.0) Monocytes % 7.4% (0.0-11.0) Eosinophils % 5.0% (0.0-7.0) Basophils % 1.1% (0.0-2.0) Nucleated Red Blood Cells % 0.0/100WBC (0.0-0.0) Neutrophils # (Manual) 2.210^3/ul (1.7-7.5) Lymphocytes # 1.610^3/ul (0.8-2.9) Monocytes # 0.310^3/ul (0.3-0.9) Eosinophils # 0.210^3/ul (0.0-0.5) Basophils # 0.110^3/ul (0.0-0.1) Nucleated Red Blood Cells # 0.010^3/ul (0.0-0.0) Prothrombin Time 14.1Sec (12.2-14.2) Prothrombin Time Ratio 1.1 INR International Normalized Ratio 1.09 Sodium Level 141mmol/L (135-144) Potassium Level 5.1mmol/L (3.5-5.1) Chloride Level 103mmol/L (97-110) Carbon Dioxide Level 22mmol/L (21-31) Anion Gap 21 (8-16) Blood Urea Nitrogen 80mg/dl (7-20) Creatinine 10.89mg/dl (0.44-1.00) Glucose Level 74mg/dl (70-220) Calcium Level 9.0mg/dl (8.4-10.2) Phosphorus Level 7.5mg/dl (2.5-4.9) Magnesium Level 2.2mg/dl (1.7-2.5) Total Bilirubin 0.0mg/dl (0.2-1.3) Direct Bilirubin 0.00mg/dl (0.00-0.20) Indirect Bilirubin 0.0mg/dl (0-1.1) Aspartate Amino Transf (AST/SGOT) 22IU/L (15-46) Alanine Aminotransferase (ALT/SGPT) 28IU/L (13-69) Alkaline Phosphatase 69IU/L (42-121) Total Protein 7.2g/dl (6.1-8.1) Albumin 3.9g/dl (3.3-4.9) Globulin 3.30g/dl (1.3-3.2) Albumin/Globulin Ratio 1.18 Lipase 370U/L (23-300) GARLAND PUGH MD Jul 25, 2017 17:02
[2017-07-25] MEDS: ATORVASTATIN 40 MG TAB PO SCH (21:16)
[2017-07-25] MEDS: HYDROCODONE/APAP (5/325) TAB PO PRN (21:17)
--- NOTE | 2017-07-25 23:27 | RADRPT ---
PROCEDURE: Lexiscan myocardial perfusion study CLINICAL INDICATION: 56 -year-old patient complaining of chest pain. TECHNIQUE: Lexiscan 0.4 mg intravenously separate acquisition gated myocardial perfusion SPECT using Tc 99m Myoview 30.0 mCi intravenously at stress and Tc-99m Myoview, 10.0 mCi intravenously at rest was performed using the rest/stress sequence. Poststress Myoview SPECT images were obtained in the s upine position. COMPARISON: No prior studies. FINDINGS: Perfusion images reveal a small size moderate in degree reversible perfusion defect in the apical an d distal anterior peter. Diffusely reduced uptake is identified in the remainder of the left ventric le on the poststress images, which as likely related to soft tissue attenuation. Lexiscan post stress gated SPECT images demonstrate mild hypokinesis of the left ventricle. IMPRESSION: 1. The type and distribution of the scintigraphic abnormalities are most consistent with a small siz e reversible perfusion defect in the apex and distal anterior wall. 2. Mild hypokinesis of the left ventricle. 3. The left ventricle ejection fraction at stress is 30%. RPTAT: HH .Rachana Chacon MD, Date Time Electronically viewed and signed by .Rachana Chacon MD, MD on 07/25/2017 23:27 .L/
== END 2017-07-25 23:45 | disposition home or self-care (01) | DRG 313 ==
LOC: E/R 14:36 → EDBD 14:36 → MS4 17:53
PROVIDERS: ADMIT Hospitalist; ATTEND Hospitalist
DX: R07.9 Chest pain, unspecified (principal); I12.0 Hypertensive chronic kidney disease with stage 5 chronic kidney disease or end stage renal disease; N18.6 End stage renal disease; Z99.2 Dependence on renal dialysis; E78.5 Hyperlipidemia, unspecified; F41.9 Anxiety disorder, unspecified; D64.9 Anemia, unspecified
CPT/HCPCS: 36415; 71010; 78452; 80048; 80053; 82306; 83036; 83690; 83735; 84100; 84443; 84484; 85025; 85610; 90935; 93005; 93017; A9500; A9505; J2785; J7030